=== PATIENT | male | born 1950 | race Caucasian/White ===

== ENCOUNTER 2019-12-07 00:42 | Inpatient (IN) | payer OTHER ==
[~2019-12-07] VITALS: Ht 188 cm; Wt 134.4 kg
--- NOTE | 2019-12-07 00:50 | NUR ---
BIBA TRANSFER FROM [place] WITH C/O ABDOMINAL PAIN X 10 DAYS, HX OF HERNIA REPAIRS. REPORTS 1 BOWEL MOVEMENT IN 10 DAYS AND INCREASING PAIN. PT TRANSFERRED FOR FINDINGS OF INFECTION IN ABDOMEN
[2019-12-07] MEDS ORDERED: ONDANSETRON 2MG/ML, 2ML ONE ×2 (01:00→08:42)
[2019-12-07] MEDS ORDERED: ONDANSETRON 2MG/ML, 2ML IVPush ONE (01:00)
[2019-12-07] MEDS ORDERED: TRAZ300T2 PO (01:07)
[2019-12-07] MEDS ORDERED: CARV25TA12 PO (01:07)
[2019-12-07] MEDS ORDERED: MULT-508 PO (01:07)
[2019-12-07] MEDS ORDERED: WARF5TAB2 PO (01:07)
[2019-12-07] MEDS ORDERED: CYCLOBENZAPRINE PO (01:07)
[2019-12-07] MEDS ORDERED: ASPI-515 PO (01:07)
--- NOTE | 2019-12-07 01:07 | NUR ---
BREAK RN: PT MEDICATED PER JUN. MIGUEL, LAB AT [facility], MED REC DONE. PT VSS, DENIES ADDITIONAL NEEDS AT THIS TIME, GIVEN WARM BLANKETS FOR COMFORT. PT TO BE ADMITTED. DON
[2019-12-07] MEDS ORDERED: INSU100I13 SC (01:22)
[2019-12-07] MEDS ORDERED: AMOX1TAB64 PO (01:22)
[2019-12-07] MEDS ORDERED: INSU100I17 SC (01:22)
[2019-12-07] MEDS ORDERED: CETI10TA18 PO (01:22)
[2019-12-07] MEDS ORDERED: LISI2.5T PO (01:22)
[2019-12-07] MEDS ORDERED: CYCL-259 PO (01:22)
[2019-12-07] MEDS ORDERED: HYDR-826 PO (01:22)
[2019-12-07] MEDS ORDERED: CARV-39 PO (01:22)
[2019-12-07] MEDS ORDERED: TOPI25TA8 PO (01:22)
[2019-12-07] MEDS ORDERED: FLUO20CA23 PO (01:22)
[2019-12-07] MEDS ORDERED: LOPE2CAP PO (01:22)
[2019-12-07] MEDS ORDERED: ATOR10TA9 PO (01:22)
[2019-12-07] MEDS ORDERED: CAPSAICIN TP (01:22)
[2019-12-07] MEDS: SODIUM CHLORIDE 0.9% 1,000 ML IV SCH ×2 (01:30→12:09)
[2019-12-07] MEDS ORDERED: PLEASE ENTER ALLERGIES MC SCH (01:30)
[2019-12-07] MEDS ORDERED: ONDANSETRON 2MG/ML, 2ML IVPush PRN ×2 (01:30→08:00)
[2019-12-07] MEDS ORDERED: PROMETHAZINE 25 MG/ML, 1ML IM PRN (01:30)
[2019-12-07] MEDS ORDERED: ONDANSETRON ODT 4 MG PO PRN (01:30)
[2019-12-07] MEDS ORDERED: morphine SULFATE 10 MG/ML, 1ML IVPush PRN (01:30)
[2019-12-07] MEDS ORDERED: hydrALAzine 20 MG/ML, 1ML IVPush PRN (01:30)
--- NOTE | 2019-12-07 01:33 | NUR ---
DAYANNA CELL PHONE, BROTHER. PRIMARY POINT OF CONTACT
[2019-12-07] MEDS ORDERED: PIPERACILLIN/TAZO/PMX 3.375GM 50 ML ONE (01:41)
[2019-12-07 01:46] LABS: BASOPHILS # (AUTO) 0.04 x10^3/uL (0-0.1); BASOPHILS % (AUTO) 0 % (0-1); EOSINOPHILS # (AUTO) 0.09 x10^3/uL (0-0.4); EOSINOPHILS % (AUTO) 1 % (1-7); LYMPHOCYTES # (AUTO) 1.48 x10^3/uL (1-3.4); LYMPHOCYTES % (AUTO) 12 % (22-44); MD NO; MEAN CORPUSCULAR HEMOGLOBIN 32.3 pg (27.5-34.5); MEAN CORPUSCULAR HGB CONC 32.5 g/dL (33.2-36.2); MEAN PLATELET VOLUME 8.3 fL (7.4-10.4); MONOCYTES # (AUTO) 0.92 x10^3/uL (0.2-0.8); MONOCYTES % (AUTO) 8 % (2-9); NEUTROPHILS # (AUTO) 9.73 x10^3/uL (1.8-6.8); NEUTROPHILS % (AUTO) 79 % (42-75); PLATELET COUNT 429 x10^3/uL (130-400); RED BLOOD COUNT 3.99 x10^6/uL (4.38-5.82); RED CELL DISTRIBUTION WIDTH 13.8 % (9.4-14.8)
[2019-12-07] MEDS: PIPERACILLIN/TAZO/PMX 3.375GM 50 ML IV SCH ×4 (01:48→20:17)
[2019-12-07 01:58] LABS: ALANINE AMINOTRANSFERASE 12 U/L (12-78); ALBUMIN 2.4 g/dL (3.4-5.0); ANION GAP 8 mmol/L (5-15); CHLORIDE 101 mmol/L (98-107)
[2019-12-07 02:13] LABS: ALKALINE PHOSPHATASE 71 U/L (45-117); BILIRUBIN,TOTAL 0.6 mg/dL (0.2-1.0); FREE T4 (FREE THYROXINE) 1.18 ng/dL (0.76-1.46); TOTAL PROTEIN 6.6 g/dL (6.4-8.2)
[2019-12-07 02:19] LABS: INTERNATIONAL NORMALIZED RATIO 1.48 (0.93-1.1); PROTHROMBIN TIME 15.3 Seconds (9.6-11.5)
[2019-12-07] MEDS ORDERED: OXYcodone IR 5MG TABLET ONE (02:25)
[2019-12-07] MEDS: OXYcodone IR 5MG TABLET PO PRN ×3 (02:30→21:33)
[2019-12-07 03:33] VITALS: BP 133/81
[2019-12-07] MEDS: INSULIN LISPRO 100 UNITS/ML, PEN SQ-INSULIN SCH ×4 (07:00→22:24)
[2019-12-07] MEDS ORDERED: CHLORHEXIDINE 15 ML UDC MM ONE (07:00)
[2019-12-07] MEDS ORDERED: CHLORHEXIDINE 15 ML UDC ONE (07:01)
[2019-12-07] MEDS ORDERED: LACTATED RINGERS 1,000 ML IV SCH (07:11)
[2019-12-07] MEDS ORDERED: BUPIVACAINE/PF-EPI 0.5% 1:200K ONE (07:20)
[2019-12-07] MEDS ORDERED: FENTANYL PF 250 MCG/5ML ONE (07:39)
[2019-12-07] MEDS ORDERED: CEFAZOLIN 1,000 MG ONE ×2 (07:51)
[2019-12-07] MEDS ORDERED: METOCLOPRAMIDE 5 MG/ML, 2ML ONE (07:54)
[2019-12-07] MEDS ORDERED: ACETAMINOPHEN 325 MG TABLET PO PRN (08:00)
[2019-12-07] MEDS ORDERED: OXYcodone 5 MG/5 ML ORAL.SOL UDC PO PRN (08:00)
[2019-12-07] MEDS ORDERED: hydrALAzine 20 MG/ML, 1ML IV PRN (08:00)
[2019-12-07] MEDS ORDERED: PROMETHAZINE 25 MG/ML, 1ML IVPush PRN (08:00)
[2019-12-07] MEDS ORDERED: LABETALOL 5MG/ML, 20ML IV PRN (08:00)
[2019-12-07] MEDS ORDERED: HYDROmorphone 1 MG/ML, 1ML INJ IVPush PRN (08:00)
[2019-12-07] MEDS ORDERED: EPHEDRINE 50 MG/ML, 1ML ONE (08:06)
[2019-12-07] MEDS ORDERED: PHENYLEPHRINE 10 MG/ML ONE (08:09)
[2019-12-07] MEDS ORDERED: SUCCINYLCHOLINE 20 MG/ML, 10ML ONE (08:42)
[2019-12-07] MEDS ORDERED: PROPOFOL 10 MG/ML, 20ML ONE (08:42)
[2019-12-07] MEDS ORDERED: ROCURONIUM 10MG/ML,5ML ONE (08:42)
[2019-12-07] MEDS: ASPIRIN 81 MG TABLET EC PO SCH (09:00)
[2019-12-07] MEDS: MULTIVITAMIN 1 TABLET PO SCH (09:00)
[2019-12-07] MEDS: CARVEDILOL 25 MG TABLET PO SCH ×2 (09:00→21:26)
[2019-12-07] MEDS ORDERED: ACETAMINOPHEN 650 MG/20.3 ML UDC ONE (09:20)
[2019-12-07] MEDS ORDERED: FENTANYL PF 100 MCG/2ML ONE (09:20)
[2019-12-07] MEDS ORDERED: OXYcodone 5 MG/5 ML ORAL.SOL UDC ONE (09:21)
[2019-12-07] MEDS: FENTANYL PF 100 MCG/2ML IV PRN ×2 (09:34→09:44)
[2019-12-07] MEDS: TOPIRAMATE 25 MG TABLET PO SCH ×2 (11:56→21:27)
[2019-12-07] MEDS: CETIRIZINE 10 MG TABLET PO SCH (11:56)
[2019-12-07] MEDS: FLUOXETINE HCL 20 MG CAPSULE PO SCH (11:56)
[2019-12-07 12:53] LABS: MICROSCOPIC INDICATED
[2019-12-07 13:56] VITALS: BP 105/67
[2019-12-07] MEDS: WARFARIN 5 MG TABLET PO-COUM SCH (19:04)
[2019-12-07 20:04] VITALS: BP 123/73
[2019-12-07] MEDS: ATORVASTATIN 20 MG TABLET PO SCH (21:26)
[2019-12-07] MEDS: TRAZODONE 150MG TABLET PO SCH (21:26)
[2019-12-07] MEDS: INSULIN GLARGINE 100 UNITS/ML, PEN SQ-INSULIN SCH (22:23)
[2019-12-08 00:32] VITALS: BP 90/53
[2019-12-08] MEDS: OXYcodone IR 5MG TABLET PO PRN ×5 (02:13→22:24)
[2019-12-08] MEDS: PIPERACILLIN/TAZO/PMX 3.375GM 50 ML IV SCH ×4 (02:13→20:07)
[2019-12-08 03:27] VITALS: BP 130/77
[2019-12-08 05:32] LABS: INTERNATIONAL NORMALIZED RATIO 1.59 (0.93-1.1); PROTHROMBIN TIME 16.5 Seconds (9.6-11.5)
[2019-12-08 05:33] LABS: BASOPHILS # (AUTO) 0.03 x10^3/uL (0-0.1); BASOPHILS % (AUTO) 0 % (0-1); EOSINOPHILS # (AUTO) 0.32 x10^3/uL (0-0.4); EOSINOPHILS % (AUTO) 3 % (1-7); LYMPHOCYTES # (AUTO) 1.28 x10^3/uL (1-3.4); LYMPHOCYTES % (AUTO) 12 % (22-44); MD NO; MEAN CORPUSCULAR HEMOGLOBIN 32.5 pg (27.5-34.5); MEAN CORPUSCULAR HGB CONC 32.3 g/dL (33.2-36.2); MEAN PLATELET VOLUME 8.3 fL (7.4-10.4); MONOCYTES # (AUTO) 0.89 x10^3/uL (0.2-0.8); MONOCYTES % (AUTO) 8 % (2-9); NEUTROPHILS # (AUTO) 8.57 x10^3/uL (1.8-6.8); NEUTROPHILS % (AUTO) 77 % (42-75); PLATELET COUNT 365 x10^3/uL (130-400); RED BLOOD COUNT 3.46 x10^6/uL (4.38-5.82); RED CELL DISTRIBUTION WIDTH 14.1 % (9.4-14.8)
[2019-12-08 05:34] LABS: ANION GAP 4 mmol/L (5-15); CALCIUM 8.9 mg/dL (8.5-10.1); CHLORIDE 104 mmol/L (98-107); CHOLESTEROL, TOTAL 123 mg/dL (140-239); CREATININE 1.16 mg/dL (0.7-1.3); TRIGLYCERIDES 140 mg/dL (50-200); VLDL CHOLESTEROL 28 mg/dL (0-25)
[2019-12-08 05:36] LABS: CHOL/HDL RATIO 3.7; HDL CHOL % 27 % (26-37); HDL CHOLESTEROL (DIRECT) 33 mg/dL (40-60); LDL CHOLESTEROL,CALCULATED 62 mg/dL (54-169); LDL/HDL RATIO 1.9 (0.5-3.0)
[2019-12-08 06:58] VITALS: BP 111/67
[2019-12-08] MEDS ORDERED: MAGNESIUM SULFATE PMX 2GM/50ML 50 ML IV ONE (07:30)
[2019-12-08] MEDS: FLUOXETINE HCL 20 MG CAPSULE PO SCH (08:46)
[2019-12-08] MEDS: CARVEDILOL 25 MG TABLET PO SCH ×2 (08:46→22:24)
[2019-12-08] MEDS: TOPIRAMATE 25 MG TABLET PO SCH ×2 (08:46→22:24)
[2019-12-08] MEDS: ASPIRIN 81 MG TABLET EC PO SCH (08:46)
[2019-12-08] MEDS: CETIRIZINE 10 MG TABLET PO SCH (08:46)
[2019-12-08] MEDS: MULTIVITAMIN 1 TABLET PO SCH (08:46)
[2019-12-08] MEDS: INSULIN LISPRO 100 UNITS/ML, PEN SQ-INSULIN SCH ×4 (08:47→22:57)
[2019-12-08] MEDS: INSULIN GLARGINE 100 UNITS/ML, PEN SQ-INSULIN SCH ×2 (08:47→22:57)
[2019-12-08 13:45] VITALS: BP 146/96
[2019-12-08] MEDS ORDERED: VANCOMYCIN PER PHARMACY MC PRN (16:30)
[2019-12-08] MEDS ORDERED: VANCOMYCIN PMX 1GM/200ML 200 ML IV ONE (16:30)
[2019-12-08 16:47] VITALS: BP 127/79
[2019-12-08] MEDS ORDERED: PHARMACOKINETIC MONITORING MC PRN (17:00)
[2019-12-08] MEDS ORDERED: PHARMACOKINETIC CONSULTATION MC ONE (17:00)
[2019-12-08] MEDS: WARFARIN 5 MG TABLET PO-COUM SCH (17:04)
[2019-12-08] MEDS: VANCOMYCIN 2,500 MG in SODIUM CHLORIDE 0.9% 500 ML IV SCH (18:01)
[2019-12-08 18:43] VITALS: BP 111/68
[2019-12-08] MEDS: TRAZODONE 150MG TABLET PO SCH (22:23)
[2019-12-08] MEDS: ATORVASTATIN 20 MG TABLET PO SCH (22:24)
[2019-12-09 00:19] VITALS: BP 127/73
[2019-12-09] MEDS: PIPERACILLIN/TAZO/PMX 3.375GM 50 ML IV SCH ×5 (01:50→21:43)
[2019-12-09] MEDS: OXYcodone IR 5MG TABLET PO PRN (06:41)
[2019-12-09] MEDS: INSULIN GLARGINE 100 UNITS/ML, PEN SQ-INSULIN SCH ×2 (07:28→20:44)
[2019-12-09] MEDS: ASPIRIN 81 MG TABLET EC PO SCH (07:28)
[2019-12-09] MEDS: INSULIN LISPRO 100 UNITS/ML, PEN SQ-INSULIN SCH ×4 (07:28→20:44)
[2019-12-09 07:29] LABS: BASOPHILS # (AUTO) 0.04 x10^3/uL (0-0.1); BASOPHILS % (AUTO) 0 % (0-1); EOSINOPHILS # (AUTO) 0.26 x10^3/uL (0-0.4); EOSINOPHILS % (AUTO) 2 % (1-7); LYMPHOCYTES # (AUTO) 1.27 x10^3/uL (1-3.4); LYMPHOCYTES % (AUTO) 12 % (22-44); MD NO; MEAN CORPUSCULAR HEMOGLOBIN 32.4 pg (27.5-34.5); MEAN CORPUSCULAR HGB CONC 32.6 g/dL (33.2-36.2); MEAN PLATELET VOLUME 8.4 fL (7.4-10.4); MONOCYTES % (AUTO) 5 % (2-9); NEUTROPHILS # (AUTO) 8.98 x10^3/uL (1.8-6.8); NEUTROPHILS % (AUTO) 81 % (42-75); PLATELET COUNT 400 x10^3/uL (130-400); RED BLOOD COUNT 3.71 x10^6/uL (4.38-5.82); RED CELL DISTRIBUTION WIDTH 13.9 % (9.4-14.8)
[2019-12-09] MEDS: CETIRIZINE 10 MG TABLET PO SCH (07:29)
[2019-12-09] MEDS: TOPIRAMATE 25 MG TABLET PO SCH ×2 (07:29→20:32)
[2019-12-09] MEDS: MULTIVITAMIN 1 TABLET PO SCH (07:29)
[2019-12-09] MEDS: FLUOXETINE HCL 20 MG CAPSULE PO SCH (07:29)
[2019-12-09] MEDS: CARVEDILOL 25 MG TABLET PO SCH ×2 (07:29→20:33)
[2019-12-09 07:31] LABS: INTERNATIONAL NORMALIZED RATIO 2.26 (0.93-1.1); PROTHROMBIN TIME 23.5 Seconds (9.6-11.5)
[2019-12-09 07:35] LABS: ANION GAP 7 mmol/L (5-15); CALCIUM 9.2 mg/dL (8.5-10.1); CHLORIDE 100 mmol/L (98-107)
[2019-12-09 07:36] LABS: CREATININE 1.14 mg/dL (0.7-1.3)
[2019-12-09 07:52] VITALS: BP 120/72
[2019-12-09] MEDS: DOCUSATE 100 MG CAPSULE PO PRN (10:40)
[2019-12-09] MEDS: POLYETHYLENE GLYCOL 17 GM PACKET PO PRN (10:40)
[2019-12-09] MEDS: VANCOMYCIN 2,500 MG in SODIUM CHLORIDE 0.9% 500 ML IV SCH (11:08)
[2019-12-09 12:55] VITALS: BP 105/54
[2019-12-09] MEDS ORDERED: MAGNESIUM CITRATE 300ML ORAL SOL PO PRN (16:30)
[2019-12-09] MEDS: WARFARIN 5 MG TABLET PO-COUM SCH (17:29)
[2019-12-09] MEDS: MAGNESIUM HYDROXIDE 8%, 30ML UDC PO PRN (17:29)
[2019-12-09] MEDS ORDERED: GUAIFENESIN 200 MG TABLET ONE (17:55)
[2019-12-09] MEDS: GUAIFENESIN 200 MG TABLET PO PRN (17:57)
[2019-12-09 20:08] VITALS: BP 146/87
[2019-12-09] MEDS: ATORVASTATIN 20 MG TABLET PO SCH (20:32)
[2019-12-09] MEDS: TRAZODONE 150MG TABLET PO SCH (20:32)
[2019-12-09] MEDS: ACETAMINOPHEN 325 MG TABLET PO PRN (20:32)
[2019-12-10 00:21] VITALS: BP 134/82
[2019-12-10] MEDS: OXYcodone IR 5MG TABLET PO PRN ×3 (00:30→19:56)
[2019-12-10] MEDS: PIPERACILLIN/TAZO/PMX 3.375GM 50 ML IV SCH ×2 (03:41→10:16)
[2019-12-10 06:20] LABS: BASOPHILS # (AUTO) 0.04 x10^3/uL (0-0.1); BASOPHILS % (AUTO) 0 % (0-1); EOSINOPHILS # (AUTO) 0.65 x10^3/uL (0-0.4); EOSINOPHILS % (AUTO) 6 % (1-7); LYMPHOCYTES # (AUTO) 1.55 x10^3/uL (1-3.4); LYMPHOCYTES % (AUTO) 14 % (22-44); MD NO; MEAN CORPUSCULAR HEMOGLOBIN 32.5 pg (27.5-34.5); MEAN CORPUSCULAR HGB CONC 32.8 g/dL (33.2-36.2); MEAN PLATELET VOLUME 8.2 fL (7.4-10.4); MONOCYTES # (AUTO) 0.73 x10^3/uL (0.2-0.8); MONOCYTES % (AUTO) 7 % (2-9); NEUTROPHILS # (AUTO) 7.77 x10^3/uL (1.8-6.8); NEUTROPHILS % (AUTO) 72 % (42-75); PLATELET COUNT 426 x10^3/uL (130-400); RED BLOOD COUNT 3.62 x10^6/uL (4.38-5.82); RED CELL DISTRIBUTION WIDTH 13.8 % (9.4-14.8)
[2019-12-10 06:23] LABS: ANION GAP 3 mmol/L (5-15); CALCIUM 9.4 mg/dL (8.5-10.1); CHLORIDE 99 mmol/L (98-107); CREATININE 1.08 mg/dL (0.7-1.3)
[2019-12-10 06:27] LABS: INTERNATIONAL NORMALIZED RATIO 3.66 (0.93-1.1); PROTHROMBIN TIME 38.2 Seconds (9.6-11.5)
[2019-12-10] MEDS: GUAIFENESIN 200 MG TABLET PO PRN ×2 (06:35→16:13)
[2019-12-10 07:33] VITALS: BP 143/84
[2019-12-10] MEDS: INSULIN GLARGINE 100 UNITS/ML, PEN SQ-INSULIN SCH ×2 (07:41→21:21)
[2019-12-10] MEDS: INSULIN LISPRO 100 UNITS/ML, PEN SQ-INSULIN SCH ×4 (07:41→21:20)
[2019-12-10] MEDS: ASPIRIN 81 MG TABLET EC PO SCH (07:41)
[2019-12-10] MEDS: FLUOXETINE HCL 20 MG CAPSULE PO SCH (07:41)
[2019-12-10] MEDS: MULTIVITAMIN 1 TABLET PO SCH (07:41)
[2019-12-10] MEDS: CETIRIZINE 10 MG TABLET PO SCH (07:41)
[2019-12-10] MEDS: CARVEDILOL 25 MG TABLET PO SCH ×2 (07:41→21:22)
[2019-12-10] MEDS: TOPIRAMATE 25 MG TABLET PO SCH ×2 (07:42→21:22)
[2019-12-10] MEDS ORDERED: CEFTRIAXONE PMX 1GM/50ML 50 ML IV SCH (12:30)
[2019-12-10 13:20] VITALS: BP 139/80
[2019-12-10] MEDS: WARFARIN 5 MG TABLET PO-COUM SCH (17:25)
[2019-12-10] MEDS: WARFARIN MECH. VALVE PROTOCOL 2.5 to 3.5 XX SCH (17:38)
[2019-12-10] MEDS ORDERED: WARFARIN 2 MG TABLET PO-COUM ONE (18:00)
[2019-12-10 19:05] VITALS: BP 140/91
[2019-12-10] MEDS: CEFAZOLIN PMX 1GM/50ML 50 ML IV SCH (19:34)
[2019-12-10] MEDS: TRAZODONE 150MG TABLET PO SCH (21:21)
[2019-12-10] MEDS: ATORVASTATIN 20 MG TABLET PO SCH (21:22)
[2019-12-11 00:53] VITALS: BP 135/93
[2019-12-11] MEDS: GUAIFENESIN 200 MG TABLET PO PRN ×3 (01:04→21:55)
[2019-12-11] MEDS: ACETAMINOPHEN 325 MG TABLET PO PRN ×2 (01:04→19:42)
[2019-12-11] MEDS: OXYcodone IR 5MG TABLET PO PRN ×4 (02:39→19:43)
[2019-12-11] MEDS: CEFAZOLIN PMX 1GM/50ML 50 ML IV SCH ×3 (03:10→19:37)
[2019-12-11 05:46] LABS: INTERNATIONAL NORMALIZED RATIO 4.55 (0.93-1.1); PROTHROMBIN TIME 47.6 Seconds (9.6-11.5)
[2019-12-11 05:53] LABS: BASOPHILS # (AUTO) 0.04 x10^3/uL (0-0.1); BASOPHILS % (AUTO) 0 % (0-1); EOSINOPHILS # (AUTO) 0.51 x10^3/uL (0-0.4); EOSINOPHILS % (AUTO) 5 % (1-7); LYMPHOCYTES # (AUTO) 1.64 x10^3/uL (1-3.4); LYMPHOCYTES % (AUTO) 15 % (22-44); MD NO; MEAN CORPUSCULAR HEMOGLOBIN 32.4 pg (27.5-34.5); MEAN CORPUSCULAR HGB CONC 32.7 g/dL (33.2-36.2); MEAN PLATELET VOLUME 8.1 fL (7.4-10.4); MONOCYTES # (AUTO) 0.74 x10^3/uL (0.2-0.8); MONOCYTES % (AUTO) 7 % (2-9); NEUTROPHILS # (AUTO) 7.75 x10^3/uL (1.8-6.8); NEUTROPHILS % (AUTO) 73 % (42-75); PLATELET COUNT 429 x10^3/uL (130-400); RED BLOOD COUNT 3.67 x10^6/uL (4.38-5.82); RED CELL DISTRIBUTION WIDTH 13.9 % (9.4-14.8)
[2019-12-11 05:58] LABS: CHLORIDE 102 mmol/L (98-107)
[2019-12-11 06:07] LABS: ANION GAP 3 mmol/L (5-15); CALCIUM 9.4 mg/dL (8.5-10.1); CREATININE 1.04 mg/dL (0.7-1.3)
[2019-12-11] MEDS: MAGNESIUM HYDROXIDE 8%, 30ML UDC PO PRN (06:08)
[2019-12-11] MEDS: DOCUSATE 100 MG CAPSULE PO PRN ×2 (06:08→19:50)
[2019-12-11] MEDS: INSULIN LISPRO 100 UNITS/ML, PEN SQ-INSULIN SCH ×4 (07:00→21:34)
[2019-12-11 07:18] VITALS: BP 153/90
[2019-12-11] MEDS: WARFARIN MECH. VALVE PROTOCOL 2.5 to 3.5 XX SCH (09:00)
[2019-12-11] MEDS: ASPIRIN 81 MG TABLET EC PO SCH (09:52)
[2019-12-11] MEDS: MULTIVITAMIN 1 TABLET PO SCH (09:52)
[2019-12-11] MEDS: TOPIRAMATE 25 MG TABLET PO SCH ×2 (09:52→21:28)
[2019-12-11] MEDS: FLUOXETINE HCL 20 MG CAPSULE PO SCH (09:52)
[2019-12-11] MEDS: CARVEDILOL 25 MG TABLET PO SCH ×2 (09:52→21:28)
[2019-12-11] MEDS: CETIRIZINE 10 MG TABLET PO SCH (09:52)
[2019-12-11] MEDS: INSULIN GLARGINE 100 UNITS/ML, PEN SQ-INSULIN SCH ×2 (09:54→22:03)
[2019-12-11 12:49] VITALS: BP 137/86
[2019-12-11] MEDS ORDERED: WARFARIN 1 MG TABLET PO-COUM ONE (18:00)
[2019-12-11 19:20] VITALS: BP 134/91
[2019-12-11] MEDS: POLYETHYLENE GLYCOL 17 GM PACKET PO PRN (19:50)
[2019-12-11] MEDS: ATORVASTATIN 20 MG TABLET PO SCH (21:28)
[2019-12-11] MEDS: TRAZODONE 150MG TABLET PO SCH (21:29)
[2019-12-12 01:22] VITALS: BP 127/87
[2019-12-12] MEDS: GUAIFENESIN 200 MG TABLET PO PRN ×4 (01:30→23:45)
[2019-12-12] MEDS: OXYcodone IR 5MG TABLET PO PRN ×4 (01:50→23:46)
[2019-12-12] MEDS: ACETAMINOPHEN 325 MG TABLET PO PRN (01:50)
[2019-12-12] MEDS: CEFAZOLIN PMX 1GM/50ML 50 ML IV SCH ×3 (03:50→20:19)
[2019-12-12 06:58] LABS: INTERNATIONAL NORMALIZED RATIO 3.92 (0.93-1.1); PROTHROMBIN TIME 40.9 Seconds (9.6-11.5)
[2019-12-12] MEDS: INSULIN LISPRO 100 UNITS/ML, PEN SQ-INSULIN SCH ×4 (07:21→20:39)
[2019-12-12 07:39] VITALS: BP 108/68
[2019-12-12] MEDS: CETIRIZINE 10 MG TABLET PO SCH (08:23)
[2019-12-12] MEDS: CARVEDILOL 25 MG TABLET PO SCH ×2 (08:24→20:21)
[2019-12-12] MEDS: TOPIRAMATE 25 MG TABLET PO SCH ×2 (08:24→20:20)
[2019-12-12] MEDS: ASPIRIN 81 MG TABLET EC PO SCH (08:24)
[2019-12-12] MEDS: MULTIVITAMIN 1 TABLET PO SCH (08:24)
[2019-12-12] MEDS: FLUOXETINE HCL 20 MG CAPSULE PO SCH (08:27)
[2019-12-12] MEDS: INSULIN GLARGINE 100 UNITS/ML, PEN SQ-INSULIN SCH ×2 (08:29→20:38)
[2019-12-12] MEDS: WARFARIN MECH. VALVE PROTOCOL 2.5 to 3.5 XX SCH (09:23)
[2019-12-12] MEDS ORDERED: CEFA1SYR6 IV (14:28)
[2019-12-12] MEDS ORDERED: POLY17PO5 PO (14:29)
[2019-12-12] MEDS ORDERED: OXYC5TAB3 PO (14:29)
[2019-12-12] MEDS ORDERED: WARFARIN 2 MG TABLET PO-COUM ONE (18:00)
[2019-12-12 18:51] VITALS: BP 127/84
[2019-12-12] MEDS: ATORVASTATIN 20 MG TABLET PO SCH (20:20)
[2019-12-12] MEDS: TRAZODONE 150MG TABLET PO SCH (20:20)
[2019-12-12] MEDS: DOCUSATE 100 MG CAPSULE PO PRN (20:21)
[2019-12-13 01:30] VITALS: BP 106/68
[2019-12-13] MEDS: CEFAZOLIN PMX 1GM/50ML 50 ML IV SCH ×2 (04:29→12:13)
[2019-12-13 06:06] LABS: INTERNATIONAL NORMALIZED RATIO 3.26 (0.93-1.1)
[2019-12-13 06:58] VITALS: BP 116/78
[2019-12-13] MEDS: GUAIFENESIN 200 MG TABLET PO PRN ×2 (07:23→13:28)
[2019-12-13] MEDS: OXYcodone IR 5MG TABLET PO PRN ×2 (07:23→13:29)
[2019-12-13] MEDS: CARVEDILOL 25 MG TABLET PO SCH (07:59)
[2019-12-13] MEDS: CETIRIZINE 10 MG TABLET PO SCH (07:59)
[2019-12-13] MEDS: FLUOXETINE HCL 20 MG CAPSULE PO SCH (08:00)
[2019-12-13] MEDS: ASPIRIN 81 MG TABLET EC PO SCH (08:00)
[2019-12-13] MEDS: MULTIVITAMIN 1 TABLET PO SCH (08:00)
[2019-12-13] MEDS: TOPIRAMATE 25 MG TABLET PO SCH (08:00)
[2019-12-13] MEDS: INSULIN GLARGINE 100 UNITS/ML, PEN SQ-INSULIN SCH (08:01)
[2019-12-13] MEDS: INSULIN LISPRO 100 UNITS/ML, PEN SQ-INSULIN SCH ×3 (08:02→16:08)
[2019-12-13] MEDS: WARFARIN MECH. VALVE PROTOCOL 2.5 to 3.5 XX SCH (08:45)
[2019-12-13 13:00] VITALS: BP 95/55
[2019-12-13] MEDS ORDERED: WARFARIN 5 MG TABLET PO-COUM SCH (18:00)
== END 2019-12-13 17:26 | DRG 907 ==
LOC: ED 01:26 → EDIP 01:43 → 4NE 03:09
PROVIDERS: ADMIT Internal Medicine; ATTEND Hospitalist
PROC: 0WUF0JZ Supplement Abdominal Wall with Synthetic Substitute, Open Approach (ICD-10-PCS; 2019-12-07)
PROC: 0WBF0ZZ Excision of Abdominal Wall, Open Approach (ICD-10-PCS; 2019-12-07)
PROC: 0J9800Z Drainage of Abdomen Subcutaneous Tissue and Fascia with Drainage Device, Open Approach (ICD-10-PCS; 2019-12-07)
PROC: 0WPF0JZ Removal of Synthetic Substitute from Abdominal Wall, Open Approach (ICD-10-PCS; principal; 2019-12-07 07:30)
DX: T85.79XA Infection and inflammatory reaction due to other internal prosthetic devices, implants and grafts, initial encounter (principal); J96.21 Acute and chronic respiratory failure with hypoxia; L02.211 Cutaneous abscess of abdominal wall; E87.2 Acidosis; K42.0 Umbilical hernia with obstruction, without gangrene; L03.311 Cellulitis of abdominal wall; J98.11 Atelectasis; B95.61 Methicillin susceptible Staphylococcus aureus infection as the cause of diseases classified elsewhere; D53.9 Nutritional anemia, unspecified; D75.89 Other specified diseases of blood and blood-forming organs; E11.65 Type 2 diabetes mellitus with hyperglycemia; E83.42 Hypomagnesemia; E88.09 Other disorders of plasma-protein metabolism, not elsewhere classified; F32.9 Major depressive disorder, single episode, unspecified; G47.33 Obstructive sleep apnea (adult) (pediatric); I10 Essential (primary) hypertension; K43.2 Incisional hernia without obstruction or gangrene; K44.9 Diaphragmatic hernia without obstruction or gangrene; K57.30 Diverticulosis of large intestine without perforation or abscess without bleeding; K59.00 Constipation, unspecified; K66.0 Peritoneal adhesions (postprocedural) (postinfection); D50.9 Iron deficiency anemia, unspecified; N28.9 Disorder of kidney and ureter, unspecified; F17.210 Nicotine dependence, cigarettes, uncomplicated; Z20.828 Contact with and (suspected) exposure to other viral communicable diseases; R79.1 Abnormal coagulation profile; S30.1XXA Contusion of abdominal wall, initial encounter; E66.9 Obesity, unspecified; E11.649 Type 2 diabetes mellitus with hypoglycemia without coma; Y83.2 Surgical operation with anastomosis, bypass or graft as the cause of abnormal reaction of the patient, or of later complication, without mention of misadventure at the time of the procedure; Z79.01 Long term (current) use of anticoagulants; Z79.4 Long term (current) use of insulin; Z79.82 Long term (current) use of aspirin; Z79.899 Other long term (current) drug therapy; Z95.2 Presence of prosthetic heart valve; Z68.38 Body mass index [BMI] 38.0-38.9, adult; Z99.81 Dependence on supplemental oxygen; Y92.89 Other specified places as the place of occurrence of the external cause
CPT/HCPCS: 36415; 71045; 80048; 80053; 80061; 81001; 82607; 82962; 83036; 83605; 83735; 84439; 84443; 85025; 85610; 87040; 87070; 87075; 87077; 87086; 87186; 87205; 87635; 88305; 93005; 96374; 99285; G0378; J0690; J0696; J2405; J2543; J2704; J3010; J3370; C1760; J0330; J1815; J2270; J2370; J2765; J3475; J7030; J7040; J7120